=== PATIENT | male | born 1985 ===

== ENCOUNTER 2019-05-23 17:56 | Emergency (ER) | payer SELFPAY ==
[2019-05-23] MEDS ORDERED: IBUPROFEN PO ONE (21:37)
--- NOTE | 2019-05-23 21:37 | Emergency Department Report ---
Minor Respiratory - HPI Chief Complaint: Sore Throat Stated Complaint: THROAT PAIN/EXTREME SWELLING Time Seen by Provider: 05/23/19 21:00 Duration: 2 Days Pain Location: Throat Severity: moderate Minor Respiratory: Yes Sore Throat (denies any difficulty swallowing or closing of throat.), Yes Able to Tolerate Fluids, Yes Sick Contacts (sore throat), No Rhinorrhea, No Ear Pain, No Cough, No Hemoptysis, No Chest Pain, No Shortness of Breath, No Fever Other History: This is a 33-year-old male who does not speak Mac[place] therefore medical interpreter access. Patient reports that he has been having sore throat for 2 days and denies any fever or chills. Denies any difficulty swallowing, shortness of breath, cough, runny nose or nasal congestion. Denies any headache, neck pain or stiffness. Patient incontinent with someone with similar symptoms. He reports that he is here for antibiotic. Denies any drooling. He denies any medical problem. Denies taking any medication prior to coming to the emergency room. Pain is 10/10 and sore with swallowing. Pain is constant and worse with swallowing ED Review of Systems ROS: Stated complaint: THROAT PAIN/EXTREME SWELLING Other details as noted in HPI Constitutional: denies: chills, fever ENT: throat pain. denies: ear pain, congestion Respiratory: denies: cough, shortness of breath, wheezing Cardiovascular: denies: chest pain, palpitations, edema, syncope Gastrointestinal: denies: nausea, vomiting Musculoskeletal: denies: back pain, arthralgia Skin: denies: rash Neurological: denies: headache ED Past Medical Hx - Past Medical History Previous Medical History?: No - Surgical History Past Surgical History?: No - Family History Family history: no significant - Social History Smoking Status: Former Smoker Substance Use Type: None - Medications Home Medications: Home Medications Medication Instructions Recorded Confirmed Last Taken Type Clindamycin [Clindamycin CAP] 300 mg PO Q8H 10 Days #30 cap 05/23/19 Unknown Rx Ibuprofen [Motrin] 800 mg PO Q8HR PRN #12 tablet 05/23/19 Unknown Rx Minor Respiratory Exam - Exam General: Vital signs noted. No distress. Alert and acting appropriately. This is a 33-year-old male well-nourished well-developed in no acute distress. medical interpreter access HEENT: Yes Pharyngeal Erythema (bilateral. uvula midline), Yes Pharyngeal Exudates (no peritonsillar abscess seen.), Yes Moist Mucous Membranes, No Rhinorrhea, No Conjuctival Injection, No Frontal Tenderness, No Maxillary Tenderness Ear: Neither TM Bulge, Neither TM Erythema, Neither EAC Pain, Neither EAC Discharge Neck: Yes Adenopathy (anterior cervical chain lateral), Yes Supple (NO C-spine tenderness. Full range of motion.) Lungs: Yes Good Air Exchange, No Wheezes, No Ronchi, No Stridor, No Cough, No Labored Respirations, No Retractions, No Use of Accessory Muscles, No Other Abnormal Lung Sounds Heart: Yes Regular, No Murmur Abdomen: Yes Normal Bowel Sounds, No Tenderness, No Peritoneal Signs Skin: No Rash, No Edema Neurologic: Alert and oriented, no deficits. Musculoskeletal: Unremarkable. No cce. + 2 pulses in all extremities, no neurovascular compromise ED Course Vital Signs 05/23/19 18:18 Temperature 98.7 F Pulse Rate 81 Respiratory 18 Rate Blood Pressure 142/81 O2 Sat by Pulse 97 Oximetry - Reevaluation(s) Reevaluation #1: Home Management Supervisor present 05/23/19 22:22 Patient was offered Motrin and emergency room but he refused. ED Medical Decision Making - Lab Data Lab Results 05/23/19 Range/Units 19:15 Group A Strep Rapid Negative (Negative) Culture pending - Medical Decision Making This is a 33-year-old male here report that he has sore throat 2 days. Physical finding for pharyngeal erythema with exudate. He does have cervical, anterior enlarged lymph nodes. 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 Vital signs are stable and is afebrile. I discussed the patient via automotive parts interpreter strep test result which was negative and cultures pending, diagnosis and treatment plan and that I will treat him for strep empirically due to exposure. He voiced understanding I also sent him to the Motrin is to reduce inflammation and I will prescribe that for him. Patient discharged home in stable condition with prescription for clindamycin and Motrin. - Differential Diagnosis PHOTOGRAPHY TEACHER, strep throat, URI Critical care attestation.: If time is entered above; I have spent that time in minutes in the direct care of this critically ill patient, excluding procedure time. ED Disposition Clinical Impression: Acute pharyngitis Qualifiers: Pharyngitis/tonsillitis etiology: unspecified etiology Qualified Code(s): J02.9 - Acute pharyngitis, unspecified Disposition: DC-01 TO HOME OR SELFCARE Is pt being admited?: No Does the pt Need Aspirin: No Condition: Stable Instructions: Pharyngitis (ED) Additional Instructions: Gargle with warm saltwater 3 times a day Increase the fluid intake Take Medication as prescribed. Make sure that you take Motrin with food as this medication can cause irritation to stomach lining If his condition worsens, return to the emergency room Angelika grgaras con agua salada tibia 3 veces al da Aumentar la ingesta de lquidos [place] los medicamentos segn lo prescrito. Asegrese de laurie Motrin con alimentos, ya que yang medicamento puede causar irritacin en el revestimiento del estmago Si quintanilla condicin empeora, regrese a la forrest de emergencias Referrals: PRIMARY CARE, [Primary Care Provider] - 2-3 Days [facility] [Outside] - 2-3 Days Forms: Work/School Release Form(ED), Accompanied Note Print Language: SOMALI
[2019-05-23 22:38] VITALS: BP 120/78
== END 2019-05-23 22:37 | disposition home or self-care (01) ==
LOC: ED 17:56
DX: J02.9 Acute pharyngitis, unspecified (principal); Z87.891 Personal history of nicotine dependence; Z79.899 Other long term (current) drug therapy
CPT/HCPCS: 87116; 87430; 99283